=== PATIENT | female | born 1955 | race Caucasian/White ===

== ENCOUNTER 2016-09-21 09:07 | Day surgery (SDC) | payer MEDICARE, BC ==
--- NOTE | ~2016-09-21 | EGD ---
EGD REPORT [facility] [address] [id number] NAME: DANELLE MORALES : 55 STATUS : REG [facility] [place] PAT#: [id number] AGE: 61 ADM/REG DATE : 09/21/16 MR#: [id number] REPORT SERV DATE: 09/21/16 DICTATED BY: TOI PEREIRA DATE: 09/21/16 REPORT STATUS : Draft TRANSCRIBED BY: [email or web address] DATE: 09/21/16 Endoscopy Center Patient Name: Danelle Morales Date of : 1955 Attending MD: TOI PEREIRA MD Procedure Date No Time: 09/21/2016 Procedure: Colonoscopy Indications: High risk colon cancer surveillance: Personal history of non-advanced adenoma; last exam 2014. Patient Profile: Informed consent was obtained from the patient by me prior to the procedure. Risks, benefits, and alternatives were discussed including the risk of bleeding, perforation, infection, reaction to medicine, missed lesion, and cardiopulmonary complications. Referring MD: MIGUELANGEL GRIFFIN MD Medicines: Monitored Anesthesia Care Complications: No immediate complications. Procedure: Pre-Anesthesia Assessment: - ASA Grade Assessment: III - A patient with severe systemic disease. After I obtained informed consent, the scope was passed under direct vision. Throughout the procedure, the patient's blood pressure, pulse, and oxygen saturations were monitored continuously. The PCF [id number] was introduced through the anus and advanced to the cecum, identified by appendiceal orifice and ileocecal valve. The colonoscope was slowly withdrawn with careful examination all mucosal surfaces including specific attention around flexures and tip deflection behind folds; retroflexion performed in rectum. The colonoscopy was performed without difficulty. The patient tolerated the procedure well. The quality of the bowel preparation was adequate. The ileocecal valve, appendiceal orifice and rectum were photographed. Findings: A sessile polyp was found in the descending colon. The polyp was 5 mm in size. The polyp was removed with a cold biopsy forceps. Resection and retrieval were complete. Internal hemorrhoids were found during retroflexion and were mild. Impression: - One 5 mm polyp in the descending colon. Resected and retrieved. - Internal hemorrhoids. EGD REPORT [address] [address] NAME: DANELLE MORALES : 55 STATUS : REG [facility] [place] PAT#: [id number] AGE: 61 ADM/REG DATE : 09/21/16 MR#: [id number] REPORT SERV DATE: 09/21/16 DICTATED BY: TOI PEREIRA DATE: 09/21/16 REPORT STATUS : Draft TRANSCRIBED BY: [email or web address] DATE: 09/21/16 Recommendation: - Patient has a contact number available for emergencies. The signs and symptoms of potential delayed complications were discussed with the patient. Return to normal activities tomorrow. Written discharge instructions were provided to the patient. - Regular diet. - Continue present medications. - Await pathology results. - Repeat colonoscopy for surveillance based on pathology results. Procedure Code(s): --- Professional --- 09202, Colonoscopy, flexible, proximal to splenic flexure; with biopsy, single or multiple Diagnosis Code(s): --- Professional --- D12.4, Benign neoplasm of descending colon K64.8, Other hemorrhoids Z86.010, Personal history of colonic polyps CPT copyright 2013 [employer]. All rights reserved. The codes documented in this report are preliminary and upon bakeshop cleaner review may be revised to meet current compliance requirements. TOI PEREIRA MD 09/21/2016 11:14 AM This report has been signed electronically. Number of Addenda: 0 Note Initiated On: 09/21/2016 10:37 AM Scope Withdrawal Time 0 hours 14 minutes 28 seconds [address] [place] [id number]
[~2016-09-21 09:07] MED LIST: ALLEGRA180 PO; ALLERGY INJECTIONS IM; ALLERGY SHOTS SC; ASAB PO; CHOL MED; CO Q-10200 MG PO; CRESTOR10 PO; EFFIENT10 PO; EPIPEN0.3 IM; FLAXSEED OIL1000 MG PO; JANUVIA100 MG PO; LEVOTHYROXIN50 MCG PO; LEXAPRO10 PO; LOP25 PO; MULTI-VIT HP OR; PLAVIX PO; PROAIR HFA INH; PROBIOTIC OTC PO; PROZAC PO; VITAMIN B-121000 MC1 SL; VITAMIN D1000 UNI1 PO; ZYRTEC ALLGY10 MG PO
== END 2016-09-21 23:59 | disposition home or self-care (01) ==
LOC: DMU 09:07
PROVIDERS: Internal Medicine Gastroenterology
PROC: 0DBM8ZX Excision of Descending Colon, Via Natural or Artificial Opening Endoscopic, Diagnostic (ICD-10-PCS; principal; 2016-09-21 10:00)
DX: D12.4 Benign neoplasm of descending colon (principal); I10 Essential (primary) hypertension; J45.909 Unspecified asthma, uncomplicated; E11.9 Type 2 diabetes mellitus without complications; N20.0 Calculus of kidney; E66.01 Morbid (severe) obesity due to excess calories; G47.33 Obstructive sleep apnea (adult) (pediatric); Z88.1 Allergy status to other antibiotic agents; Z88.5 Allergy status to narcotic agent; Z88.0 Allergy status to penicillin; Z88.8 Allergy status to other drugs, medicaments and biological substances; Z79.82 Long term (current) use of aspirin; Z79.899 Other long term (current) drug therapy; Z98.890 Other specified postprocedural states; Z96.653 Presence of artificial knee joint, bilateral; Z90.49 Acquired absence of other specified parts of digestive tract; Z90.711 Acquired absence of uterus with remaining cervical stump
CPT/HCPCS: 82962; 88305